=== PATIENT | female | born 1985 | race Caucasian/White ===

== ENCOUNTER → 2018-06-26 | Outpatient (CLI) | payer BC ==
[2016-01-05 09:38] VITALS: BMI 33.3
[~2018-06-26] MED LIST: ACET-1718 PO; CIP500 PO; CYC10 PO; DOCO200C PO; DOCU240C67 PO; ETON1VAG7 VG; FER325 PO; FERR-53 PO; FLU15T TOP; IBU600 PO; IBU800 PO; IBUP800T37 PO; ISOM1CAP94 PO; LOR5 PO; Lanolin TP; MULT-1335 PO; NAPR220C12 PO; NIFE10CA38 PO; NIFE60TA76 PO; NO ROUTINE MEDS; NO RTN MEDS; PER PO; SUMA25TA26 PO; VEN375 PO; VEN75 PO; VENL25TA29 PO
--- NOTE | 2018-06-26 10:23 | RADIOLOGY IMAGING REPORT ---
FACILITY: [facility] PATIENT NAME: Ana Moreno : 1985 MR: [id number] V: [id number] EXAM DATE: ORDERING PHYSICIAN: NED CUMMINGS TECHNOLOGIST: Location: [facility] [place] Patient: Ana Moreno : 1985 Visit/Account:[id number] Date of Sevice: 06/26/2018 EXAMINATION: Transvaginal pelvic ultrasound with duplex Doppler evaluation 06/26/2018 9:00 AM HISTORY: Uterine fibroid.; LMP: 06/16/2018 COMPARISON STUDIES: CT abdomen and pelvis 04/23/2017 FINDINGS: Initially, transabdominal imaging with a partially filled bladder was done. Uterus: Anteflexed, 9.8 x 4.2 x 6.5 cm. Myometrium: Homogeneous echogenicity. No discrete focal fibroid. Endometrium: 5 mm thickness. IUD is well positioned in the fundal endometrium. No myometrial penetr ation. Cervix: negative Ovaries: right ovary 3.2 x 2.4 x 2.0 cm, left ovary 3.9 x 2.5 x 2.3 cm, functional follicles on the o varies. Blood flow is documented in each ovary by Doppler ultrasound. Adnexa: negative Free pelvic fluid: none IMPRESSION: 1. Uterus is anteflexed on sonographic imaging today as well as comparison CT imaging. I am uncerta in if this might account for the clinical concern for fibroid. 2. Well-positioned IUD. Report Dictated By: Monty Suh MD at 06/26/2018 10:04 AM Report E-Signed By: Monty Suh MD at 06/26/2018 10:19 AM WSN:[id number]
== END ==
LOC: US 01:08
PROVIDERS: ATTEND Family Medicine
DX: Z97.5 Presence of (intrauterine) contraceptive device (principal)
CPT/HCPCS: 76856